=== PATIENT | male | born 1995 | race Hispanic/Latino ===

== ENCOUNTER → 2019-06-22 | Outpatient (CLI) | payer OTHER ==
[~2019-06-22] MED LIST: METHACHOLINE KIT (J7674) INH ONE
--- NOTE | 2019-06-22 08:17 | PFTRPT ---
Visit Date: 06/22/2019 Referring Doctor: Earlene Mason MD Height: 63.00 Inches Weight: 134.00 Lbs BSA: 1.63 Diagnosis: R06.00 INTERPRETATION: Study of excellent technical quality. Under protocol, methacholine was administered. Even after a maximum dose of 25 mg or 188.875 CDUs, no provocation dose ever achieved. IMPRESSION: Negative methacholine challenge study. MTDD
== END ==
LOC: M CARPUL 07:19
PROVIDERS: ATTEND Internal Medicine Pulmonary Disease
DX: R06.00 Dyspnea, unspecified (principal)
CPT/HCPCS: 94070; J7674